=== PATIENT | female | born 1965 | race Caucasian/White ===

== ENCOUNTER 2019-06-26 13:49 | Emergency (ER) | payer OTHER ==
[2019-06-26 14:01] VITALS: BP 102/65; PULSE 71; TEMP 97.9; BMI 25.4
--- NOTE | 2019-06-26 14:35 | PDOC ---
History of Present Illness - General Chief Complaint: Ear Problem Stated Complaint: EAR PAIN Time Seen by Provider: 06/26/19 14:18 History Source: Patient - History of Present Illness Initial Comments: 06/26/19 17:54 Chief complaint: Ear fullness Patient 54-year-old female with a remote history in the past of Mnire's disease. Patient states her ears have been full for a week. Patient has had some facial discomfort, no fever or runny nose, no cough and patient does not appear acutely ill. No dizziness GENERAL/CONSTITUTIONAL: No fever, weakness. dizziness HEAD, EYES, EARS, NOSE AND THROAT: No change in vision. No ear pain or discharge. No sore throat.+ Ear fullness CARDIOVASCULAR: No chest pain RESPIRATORY: No shortness of breath or cough GASTROINTESTINAL: No pain, nausea, vomiting, diarrhea or constipation GENITOURINARY: No dysuria MUSCULOSKELETAL: No neck or back pain SKIN: No rash NEUROLOGIC: No headache, vertigo, loss of consciousness, or loss of sensation. GENERAL: The patient is awake, alert, and fully oriented, in no acute distress. HEAD: Normal with no signs of trauma. + Minimal facial tenderness EYES: Pupils equal, round and reactive to light, sclera anicteric, conjunctiva clear. ENT: Ears: Canals clear, TMs no erythema pharynx: no erythema, no exudate, uvula midline NECK: supple CHEST: clear, nontender, rr ABD: soft, nontender BACK: no tenderness or signs of injury EXTREMITIES: Normal range of motion, no edema. NEUROLOGICAL: Normal speech, normal gait. Cranial nerves II through XII grossly intact, no gross focal abnormalities SKIN: Warm, Dry Past History - Past Medical History Allergies/Adverse Reactions: Allergies Allergy/AdvReac Type Severity Reaction Status Date / Time No Known Allergies Allergy Verified 06/26/19 14:01 Home Medications: Ambulatory Orders Amox-Tr/K Cl [Augmentin - 875Mg Tablet] 1 tab PO BID #20 tablet 06/26/19 COPD: No Other medical history: minieres syndrome - Psycho Social/Smoking Cessation Hx Smoking History: Never smoked *Physical Exam - Vital Signs Last Vital Signs Temp Pulse Resp BP Pulse Ox 97.9 F 71 18 102/65 99 06/26/19 13:55 06/26/19 13:55 06/26/19 13:55 06/26/19 13:55 06/26/19 13:55 Medical Decision Making - Medical Decision Making 06/26/19 18:11 54-year-old female with remote history of Mnire's disease, with ear fullness and facial pain, patient has not taken any medications for this. Patient does not have a fever, she is neurologically intact, no dizziness or concern for any neurological disorder. Exam is normal. Will recommend decongestants, patient given prescription for antibiotics in case facial pain becomes worse, she runs a fever. Patient was concerned because she was thinking she might be getting sinusitis since her symptoms have been for at least a week. Discussed issues, findings, results, applicable medications and treatments and follow-up. All these were understood and all questions were answered Discharge - Discharge Information Problems reviewed: Yes Clinical Impression/Diagnosis: Ear pain Qualifiers: Laterality: bilateral Qualified Code(s): H92.03 - Otalgia, bilateral Condition: Stable Disposition: HOME - Admission No - Additional Discharge Information Prescriptions: Amox-Tr/K Cl [Augmentin - 875Mg Tablet] 1 tab PO BID #20 tablet - Follow up/Referral Referrals: Zhang Menezes MD [Staff Physician] - - Patient Discharge Instructions Additional Instructions: You can try Sudafed as directed on the package. If your symptoms get worse, you get more facial pain, or feel like you are getting sicker. You can start the Augmentin. Make sure you follow-up with your ENT doctor. I will call him and see if you can move your appointment to sooner if your symptoms are not resolving Return to the ER if feeling much worse - Post Discharge Activity
== END 2019-06-26 14:38 | disposition home or self-care (01) ==
LOC: JERFT 13:49
DX: H92.03 Otalgia, bilateral (principal); Z86.69 Personal history of other diseases of the nervous system and sense organs
CPT/HCPCS: 99283-25